=== PATIENT | female | born 1945 | race Caucasian/White ===

== ENCOUNTER → 2017-01-12 | Outpatient (CLI) | payer MEDICARE ==
--- NOTE | 2017-01-13 10:03 | MM ---
Reason for exam: screening (asymptomatic). Last mammogram was performed 1 year and 2 months ago. History: Patient is postmenopausal. Family history of premenopausal breast cancer in sister and premenopausal breast cancer in maternal aunt. Stereotactic core biopsy, May 23, 2002. Benign core biopsy of the left breast, March 20, 1998. Excisional biopsy of the right breast. Physical Findings: A clinical breast exam by your physician is recommended on an annual basis and results should be correlated with mammographic findings. MG 3D Screening Mammo W/Cad Bilateral CC and MLO view(s) were taken. Prior study comparison: November 13, 2015, bilateral MG 3d screening mammo w/cad. July 11, 2014, bilateral MG screening mammo w CAD. April 05, 2013, bilateral digital screening mammo w/CAD. March 29, 2012, bilateral digital screening mammo w/CAD. There are scattered fibroglandular densities. No significant changes when compared with prior studies. ASSESSMENT: Negative, BI-RAD 1 RECOMMENDATION: Routine screening mammogram of both breasts in 1 year.
== END | disposition home or self-care (01) ==
LOC: RADMAMWWP 09:57
PROVIDERS: ATTEND Family Medicine
DX: Z12.31 Encounter for screening mammogram for malignant neoplasm of breast (principal)
CPT/HCPCS: 77063; G0202

== ENCOUNTER → 2017-07-28 | Outpatient (CLI) | payer MEDICARE ==
--- NOTE | 2017-07-28 14:18 | ECHOS ---
STRESS ECHOCARDIOGRAM DATE OF SERVICE: 07/28/2017 INDICATIONS: Chest pain. MEDICATIONS:: Lexapro. BASELINE HEART RATE: 74 BASELINE BLOOD PRESSURE: 136/78 MAXIMUM HEART RATE: 142 MAXIMUM BLOOD PRESSURE: 168/81 85% MPHR: 128 100% MPHR: 150 METS: 8.5 MAXIMUM STAGE REACHED: III TOTAL EXERCISE TIME: 7 minutes. CLINICAL INFORMATION: Baseline EKG revealed normal sinus rhythm, no acute changes. Patient walked on a standard [place] protocol for 7 minutes. Achieved a maximal heart rate of 142 beats per minute which is more than 85% of predicted maximal. She developed fatigue and shortness of breath, but did not have angina. There was a lot of baseline artifact. The available images at peak exercise suggests that there is no evidence of stress- induced ischemia. On this study, there was no significant arrhythmia. By EKG criteria, this is a negative stress test with fair exercise capacity. Baseline echo images revealed normal wall motion and wall thickening of all segments. At peak exercise, there was good augmentation of left ventricular wall motion and wall thickening of all segments suggesting that there is no evidence of stress-induced ischemia on this study. IMPRESSION: 1. Fair exercise capacity with a negative stress test by EKG criteria. 2. Normal stress echocardiogram without evidence of ischemia. MMODL / IJN: [id number] /
== END | disposition home or self-care (01) ==
LOC: RADNMMAIN 09:01
PROVIDERS: ATTEND Internal Medicine
DX: R07.9 Chest pain, unspecified (principal)
CPT/HCPCS: 93017; 93350

== ENCOUNTER → 2018-02-09 | Outpatient (CLI) | payer MEDICARE ==
--- NOTE | 2018-02-09 13:22 | BD ---
EXAMINATION TYPE: MG DEXA axial skeleton. DATE OF EXAM: 02/09/2018 CLINICAL HISTORY: M85.80 Height: 63.25 Weight: 138 FRAX RISK QUESTIONS: Alcohol (3 or more units per day): no Family History (Parent hip fracture): no Glucocorticoids (More than 3mos): no (Ex: prednisone, prednisolone, methylprednisolone, dexamethasone, and hydrocortisone). History of Fracture in Adulthood: no Secondary Osteoporosis: 1. Type 1 Diabetes: no 2. Hyperthyroidism: no 3. Menopause before 45: no 4. Malnutrition: no 5. Chronic liver disease: no Rheumatoid Arthritis: no Current Tobacco Use: no RISK FACTORS HISTORY OF: Family History of Osteoporosis: unsure...possibly sister who recently broke femur Active: yes Diet low in dairy products/other sources of calcium: no Postmenopausal woman: yes Take estrogen and/or progesterone medications: not now How long: hormonal contraceptives about 3 years Lost more than 2 inches in height since high school: no Frequent falls: no Poor Health: no Hyperparathyroidism: no Adrenal Insufficiency: no MEDICATIONS: Prednisone or other steroids: no Thyroid Medications: no Osteoporosis Medications: not now Which medication: Fosamax How Long: only one dose-had adverse reaction Additional Medications: Vitamin D, multivitamin Additional History: none to note EXAM MEASUREMENTS: Bone mineral densitometry was performed using the [employer] System. Bone mineral density as measured about the Lumbar spine is: ----- L1-L4(G/cm2): 1.036 T Score Values are as follows: ----- L2: -1.5 ----- L3: -0.8 ----- L4: -0.5 ----- L1-L4: -1.2 Bone mineral density not previously done at this facility; history of this test elsewhere Bone mineral density about the R hip (g/cm2): 0.724 Bone mineral density about the L hip (g/cm2): 0.708 T Score values are as follows: -----R Neck: -2.3 -----L Neck: -2.4 -----R Total: -1.9 -----L Total: -2.1 Bone mineral density not previously done at this facility; history of this test elsewhere IMPRESSION: Osteopenia (T Score between -2.5 and -1). There is slightly increased risk of fracture and the patient may be considered for treatment. Re-Screen 2-5 years. NOTE: T-SCORE=SD OF THE YOUNG ADULT MEAN.
--- NOTE | 2018-02-10 09:37 | MM ---
Reason for exam: screening (asymptomatic). Last mammogram was performed 1 year and 1 month ago. History: Patient is postmenopausal. Family history of premenopausal breast cancer in sister at age 50 and premenopausal breast cancer in maternal aunt at age 70. Stereotactic core biopsy, May 23, 2002. Benign core biopsy of the left breast, March 20, 1998. Excisional biopsy of the right breast. Physical Findings: A clinical breast exam by your physician is recommended on an annual basis and results should be correlated with mammographic findings. MG 3D Screening Mammo W/Cad Bilateral CC and MLO view(s) were taken. Prior study comparison: January 12, 2017, bilateral MG 3d screening mammo w/cad. November 13, 2015, bilateral MG 3d screening mammo w/cad. The breast tissue is heterogeneously dense. This may lower the sensitivity of mammography. There is chronic nodularity in the right breast, stable. No significant changes when compared with prior studies. ASSESSMENT: Benign, BI-RAD 2 RECOMMENDATION: Routine screening mammogram of both breasts in 1 year.
== END | disposition home or self-care (01) ==
LOC: RADMAMWWP 10:02
PROVIDERS: ATTEND Family Medicine
DX: Z12.31 Encounter for screening mammogram for malignant neoplasm of breast (principal); M85.80 Other specified disorders of bone density and structure, unspecified site
CPT/HCPCS: 77063; 77067; 77080

== ENCOUNTER → 2019-03-02 | Outpatient (CLI) | payer MEDICARE ==
--- NOTE | 2019-03-03 12:05 | MM ---
Reason for exam: screening (asymptomatic). Last mammogram was performed 1 year and 1 month ago. History: Patient is postmenopausal. Family history of premenopausal breast cancer in sister at age 50 and premenopausal breast cancer in maternal aunt at age 70. Stereotactic core biopsy, May 23, 2002. Benign core biopsy of the left breast, March 20, 1998. Excisional biopsy of the right breast. Physical Findings: A clinical breast exam by your physician is recommended on an annual basis and results should be correlated with mammographic findings. MG 3D Screening Mammo W/Cad Bilateral CC and MLO view(s) were taken. Prior study comparison: February 09, 2018, bilateral MG 3d screening mammo w/cad. January 12, 2017, bilateral MG 3d screening mammo w/cad. The breast tissue is heterogeneously dense. This may lower the sensitivity of mammography. There is no discrete abnormality. No significant changes when compared with prior studies. ASSESSMENT: Negative, BI-RAD 1 RECOMMENDATION: Routine screening mammogram of both breasts in 1 year.
== END | disposition home or self-care (01) ==
LOC: RADMAMWWP 10:51
PROVIDERS: ATTEND Family Medicine
DX: Z12.31 Encounter for screening mammogram for malignant neoplasm of breast (principal)
CPT/HCPCS: 77063; 77067

== ENCOUNTER → 2020-11-28 | Outpatient (CLI) | payer MEDICARE ==
--- NOTE | 2020-11-28 16:22 | BD ---
EXAMINATION TYPE: Axial Bone Density DATE OF EXAM: 11/28/2020 COMPARISON: 02/09/2018 CLINICAL HISTORY: Postmenopausal screening Height: 63 IN Weight: 136 LBS RISK FACTORS HISTORY OF: Active: YES Postmenopausal woman: AGE 55 Take estrogen and/or progesterone medications: NOT NOW How long: TOOK CONTROL FOR 3 YEARS MEDICATIONS: Additional Medications: VIT D, MULTI VIT, LEXAPRO, METFORMIN, CHOLESTEROL MED EXAM MEASUREMENTS: Bone mineral densitometry was performed using the [employer] System. Bone mineral density as measured about the Lumbar spine is: ----- L1-L4(G/cm2): 1.106 T Score Values are as follows: ----- L2: -1.2 ----- L3: 0.0 ----- L4: 0.2 ----- L1-L4: -0.6 Bone mineral density has: Increased 6.6% since study of: 02/09/2018 Bone mineral density about the R hip (g/cm2): 0.699 Bone mineral density about the L hip (g/cm2): 0.672 T Score values are as follows: -----R Neck: -2.4 -----L Neck: -2.6 -----R Total: -2.1 -----L Total: -2.3 Bone mineral density has: Decreased -3.7% since study of: 02/09/2018 IMPRESSION: Osteoporosis (T Score less than -2.5). There is increased fracture risk and therapy is usually indicated based on age. Re-Screen 1-2 years. NOTE: T-SCORE=SD OF THE YOUNG ADULT MEAN.
--- NOTE | 2020-11-29 14:15 | MM ---
Reason for exam: screening (asymptomatic). Last mammogram was performed 1 year and 9 months ago. History: Patient is postmenopausal. Family history of premenopausal breast cancer in sister at age 50 and premenopausal breast cancer in maternal aunt at age 70. Stereotactic core biopsy, May 23, 2002. Benign core biopsy of the left breast, March 20, 1998. Excisional biopsy of the right breast. Took hormonal contraceptives for 3 years. Physical Findings: A clinical breast exam by your physician is recommended on an annual basis and results should be correlated with mammographic findings. MG 3D Screening Mammo W/Cad Bilateral CC and MLO view(s) were taken. Prior study comparison: March 02, 2019, bilateral MG 3d screening mammo w/cad. February 09, 2018, bilateral MG 3d screening mammo w/cad. There are scattered fibroglandular densities. There is chronic nodularity bilaterally. No significant changes when compared with prior studies. ASSESSMENT: Benign, BI-RAD 2 RECOMMENDATION: Routine screening mammogram of both breasts in 1 year.
== END | disposition home or self-care (01) ==
LOC: RADMAMWWP 15:24
PROVIDERS: ATTEND Family Medicine
DX: Z12.31 Encounter for screening mammogram for malignant neoplasm of breast (principal); M81.0 Age-related osteoporosis without current pathological fracture; Z78.0 Asymptomatic menopausal state
CPT/HCPCS: 77063; 77067; 77080

== ENCOUNTER 2020-12-27 18:51 | Emergency (ER) | payer MEDICARE ==
[2020-12-27 18:57] VITALS: RESP 18
[2020-12-27] MEDS ORDERED: SODIUM CHLORIDE 0.9% 1,000 ML IV STA (19:18)
[2020-12-27] MEDS ORDERED: ONDANSETRON 4 MG/2 ML VIAL IVP STA (19:18)
[2020-12-27 19:38] LABS: Basophils % (A) 0 %; Eosinophils # (A) 0.1 k/uL (0-0.7); Eosinophils % (A) 1 %; HCT 41.3 % (34.0-46.0); Lymphocytes # (A) 1.3 k/uL (1.0-4.8); Lymphocytes % (A) 14 %; MCH 30.9 pg (25.0-35.0); MCHC 33.9 g/dL (31.0-37.0); MCV 91.2 fL (80.0-100.0); Mean Platelet Volume 6.5; Monocytes # (A) 0.3 k/uL (0-1.0); Monocytes % (A) 3 %; Neutrophils # (A) 7.4 k/uL (1.3-7.7); Neutrophils % (A) 80 %; Platelet Count 244 k/uL (150-450); RBC 4.53 m/uL (3.80-5.40); RDW 12.7 % (11.5-15.5); WBC 9.2 k/uL (3.8-10.6)
[2020-12-27 19:47] LABS: ALT 24 U/L (4-34); AST 24 U/L (14-36); African American GFR (CKD) >90 (>60 ml/min/1.73 sqM); Albumin 4.3 g/dL (3.5-5.0); Alkaline Phosphatase 80 U/L (38-126); Anion Gap 11 mmol/L; Blood Urea Nitrogen 20 mg/dL (7-17); Calcium 9.4 mg/dL (8.4-10.2); Carbon Dioxide 25 mmol/L (22-30); Chloride 103 mmol/L (98-107); Glucose 145 mg/dL (74-99); Lipase 87 U/L (23-300); Non-African American GFR(CKD) >90 (>60 ml/min/1.73 sqM); Potassium 3.8 mmol/L (3.5-5.1); Sodium 139 mmol/L (137-145); Total Bilirubin 0.5 mg/dL (0.2-1.3); Total Protein 7.2 g/dL (6.3-8.2)
[2020-12-27] MEDS ORDERED: METOCLOPRAMIDE 5 MG/ML 2 ML VIAL IVP STA (19:57)
[2020-12-27] MEDS ORDERED: MECLIZINE 12.5 MG TAB PO STA (19:58)
--- NOTE | 2020-12-27 20:05 | ED ---
General Adult HPI - General Chief complaint: Dizziness Stated complaint: vomiting, dizzy Time Seen by Provider: 12/27/20 18:58 Source: patient, EMS Mode of arrival: EMS Limitations: no limitations - History of Present Illness Initial comments: Dictation was produced using [employer] dictation software. please excuse any grammatical, word or spelling errors. This patient was cared for during a federal and state declared state of emergency secondary to Covid 19 Chief Complaint: 75-year-old female with acute onset vertigo History of Present Illness: Is a 75-year-old female she has past medical history of prediabetes. She presents to the emergency department via EMS for severe bout of dizziness. Patient was helping her family members run some errands when all of a sudden she became severely nauseated. She did have cold bouts of n onbilious nonbloody projectile vomiting. Patient does not have a history of vertigo. She states that her symptoms are so severe that she could not walk. She does report that the room was spinning. He was in her usual state of health otherwise. She woke up this morning feeling fine. Denies any constitutional symptoms. She does not have any abdominal pain. The ROS documented in this emergency department record has been reviewed and confirmed by me. Those systems with pertinent positive or negative responses have been documented in the HPI. All other systems are other negative and/or n oncontributory. PHYSICAL EXAM: General Impression: Alert and oriented x3, not in acute distress HEENT: Normocephalic atraumatic, extra-ocular movements intact, pupils equal and reactive to light bilaterally, mucous membranes moist. Cardiovascular: Heart regular rate and rhythm Chest: Able to complete full sentences, no retractions, no tachypnea Abdomen: abdomen soft, non-tender, non-distended, no organomegaly Musculoskeletal: Pulses present and equal in all extremities, no peripheral edema Motor: no focal deficits noted Neurological: CN II-XII grossly intact, no focal motor or sensory deficits noted, isolated nystagmus with rightward gaze with fast phase to the right, no left gaze nystagmus, no rotatory nystagmus Skin: Intact with no visualized rashes Psych: Normal affect and mood ED course: 75-year-old female presents with clinical presentation consistent with severe vertigo ends upon arrival are within acceptable limits. Patient does not show any signs or symptoms of central cause of vertigo or features of cerebrovascular accident. Laboratory evaluation obtained. CBC, metabolic panel is unremarkable. EKG interpretation: Ventricular rate 72, normal sinus rhythm,. Interval 150, QRS 84, QTC 468. No [place] prolongation, no QTC prolongation. There is diffuse T- wave inversions in precordial leads. There are no ST segment elevations,. Overall, this EKG is unremarkable History with antivertigo medicines. She was reevaluated at approximately 8:30 PM. Patient ambulated with no complications. She feels much improved. Laboratory evaluation obtained showing no acute processes. There is a small degree of dehydration. Patient will be discharged. Patient prescription for Antivert. Still to follow-up with her primary care physician. Hyperemesis discussed. Told to seek immediate medical attention if she starts to develop associated strokelike symptoms.Otherwise she is told to follow-up with ENT if she keeps developing chronic vertiginous symptoms. - Related Data Home Medications Medication Instructions Recorded Confirmed Escitalopram Oxalate [Lexapro] 20 mg PO DAILY 12/07/14 12/07/14 Previous Rx's Medication Instructions Recorded Meclizine [Antivert] 25 mg PO TID PRN #15 tab 12/27/20 Allergies Allergy/AdvReac Type Severity Reaction Status Date / Time No Known Allergies Allergy Verified 12/27/20 18:58 Review of Systems ROS Statement: Those systems with pertinent positive or pertinent negative responses have been documented in the HPI. ROS Other: All systems not noted in ROS Statement are negative. Past Medical History Past Medical History: Diabetes Mellitus History of Any Multi-Drug Resistant Organisms: None Reported Past Surgical History: Breast Surgery Additional Past Surgical History / Comment(s): breast biopsy, colonoscopy Past Anesthesia/Blood Transfusion Reactions: No Reported Reaction Past Psychological History: Anxiety Smoking Status: Never smoker Past Alcohol Use History: Occasional Past Drug Use History: None Reported - Past Family History Mother Family Medical History: Cancer Sister(s) Family Medical History: Cancer General Exam Limitations: no limitations Course Vital Signs 12/27/20 12/27/20 18:54 19:38 Temperature 97.6 F Pulse Rate 65 71 Respiratory 18 18 Rate Blood Pressure 186/94 164/98 O2 Sat by Pulse 96 97 Oximetry Medical Decision Making - Lab Data Result diagrams: 12/27/20 19:28 12/27/20 19:28 Lab Results 12/27/20 12/27/20 Range/Units 19:28 19:28 WBC 9.2 (3.8-10.6) k/uL RBC 4.53 (3.80-5.40) m/uL Hgb 14.0 (11.4-16.0) gm/dL Hct 41.3 (34.0-46.0) % MCV 91.2 (80.0-100.0) fL MCH 30.9 (25.0-35.0) pg MCHC 33.9 (31.0-37.0) g/dL RDW 12.7 (11.5-15.5) % Plt Count 244 (150-450) k/uL MPV 6.5 Neutrophils % 80 % Lymphocytes % 14 % Monocytes % 3 % Eosinophils % 1 % Basophils % 0 % Neutrophils # 7.4 (1.3-7.7) k/uL Lymphocytes # 1.3 (1.0-4.8) k/uL Monocytes # 0.3 (0-1.0) k/uL Eosinophils # 0.1 (0-0.7) k/uL Basophils # 0.0 (0-0.2) k/uL Sodium 139 (137-145) mmol/L Potassium 3.8 (3.5-5.1) mmol/L Chloride 103 (98-107) mmol/L Carbon Dioxide 25 (22-30) mmol/L Anion Gap 11 mmol/L BUN 20 H (7-17) mg/dL Creatinine 0.54 (0.52-1.04) mg/dL Est GFR (CKD-EPI)AfAm >90 (>60 ml/min/1.73 sqM) Est GFR (CKD-EPI)NonAf >90 (>60 ml/min/1.73 sqM) Glucose 145 H (74-99) mg/dL Calcium 9.4 (8.4-10.2) mg/dL Total Bilirubin 0.5 (0.2-1.3) mg/dL AST 24 (14-36) U/L ALT 24 (4-34) U/L Alkaline Phosphatase 80 (38-126) U/L Total Protein 7.2 (6.3-8.2) g/dL Albumin 4.3 (3.5-5.0) g/dL Lipase 87 (23-300) U/L Disposition Clinical Impression: Vertigo Disposition: HOME SELF-CARE Condition: Good Instructions (If sedation given, give patient instructions): Dizziness (ED) Prescriptions: Meclizine [Antivert] 25 mg PO TID PRN #15 tab PRN Reason: dizziness Is patient prescribed a controlled substance at d/c from ED?: No Referrals: Breanna Goldstein MD [Primary Care Provider] - 1-2 days Time of Disposition: 20:54
[2020-12-27 21:03] VITALS: BP 149/99; PULSE 80; TEMP 97.9
== END 2020-12-27 21:02 | disposition home or self-care (01) ==
LOC: EC 18:51
DX: R42 Dizziness and giddiness (principal); E86.0 Dehydration; R11.2 Nausea with vomiting, unspecified; F41.9 Anxiety disorder, unspecified; Z79.899 Other long term (current) drug therapy
CPT/HCPCS: 36415; 93005; 80053; 83690; 85025; 99284; 96374; 96375; 96361; J2765; J2405

== ENCOUNTER → 2022-01-03 | Outpatient (CLI) | payer MEDICARE ==
--- NOTE | 2022-01-07 08:58 | MM ---
Reason for exam: screening (asymptomatic). Last mammogram was performed 1 year and 1 month ago. History: Patient is postmenopausal. Family history of premenopausal breast cancer in sister at age 50 and premenopausal breast cancer in maternal aunt at age 70. Stereotactic core biopsy, May 23, 2002. Benign core biopsy of the left breast, March 20, 1998. Excisional biopsy of the right breast. Took hormonal contraceptives for 3 years. Physical Findings: A clinical breast exam by your physician is recommended on an annual basis and results should be correlated with mammographic findings. MG 3D Screening Mammo W/Cad Bilateral CC and MLO view(s) were taken. Prior study comparison: November 28, 2020, bilateral MG 3d screening mammo w/cad. March 02, 2019, bilateral MG 3d screening mammo w/cad. There are scattered fibroglandular densities. No significant changes when compared with prior studies. ASSESSMENT: Benign, BI-RAD 2 RECOMMENDATION: Routine screening mammogram of both breasts in 1 year.
== END | disposition home or self-care (01) ==
LOC: RADMAMWWP 11:50
PROVIDERS: ATTEND Family Medicine
DX: Z12.31 Encounter for screening mammogram for malignant neoplasm of breast (principal)
CPT/HCPCS: 77063; 77067

== ENCOUNTER → 2023-02-04 | Outpatient (CLI) | payer MEDICARE ==
--- NOTE | 2023-02-05 18:59 | MM ---
Reason for Exam: Screening (asymptomatic). Last mammogram was performed 1 year(s) and 1 month(s) ago. Patient History: Menarche at age 19. First Full-Term at age 28. Postmenopausal. Patient used Hormonal Contraceptives for 3 years. Excisional Biopsy on the Right side. 05/23/2002, Stereotactic Core Biopsy. 03/20/1998, Benign Core Biopsy on the left side. Maternal aunt had breast cancer, age 70. Sister had breast cancer, age 50. Risk Values: Patt 5 year model risk: 4.7%. NCI Lifetime model risk: 10.0%. Prior Study Comparison: 03/02/2019 Bilateral Screening Mammogram, LOCATED WITHIN [facility]. 11/28/2020 Bilateral Screening Mammogram, LOCATED [facility]IN [facility]. 01/03/2022 Bilateral Screening Mammogram, LOCATED WITHIN [facility]. Tissue Density: There are scattered fibroglandular densities. Findings: Analyzed By CAD. Asymmetric density central right CC view remains unchanged. Benign bilateral vascular calcifications. Low density nodularity superior left MLO view remains unchanged. There is no suspicious group of microcalcifications or new suspicious mass in either breast. Overall Assessment: Benign, BI-RAD 2 Management: Screening Mammogram of both breasts in 1 year. 1. Note that per NCCN guidelines, a five-year risk assessment greater than 1.67% is used to assess eligibility for a risk reducing agent. 2. Patient should continue monthly self breast exams. 3. This exam should not preclude additional follow-up of suspicious palpable abnormalities. Electronically signed and approved by: Florentino Sanon M.D. Radiologist
== END | disposition home or self-care (01) ==
LOC: RADMAMWWP 13:20
PROVIDERS: ATTEND Family Medicine
DX: Z12.31 Encounter for screening mammogram for malignant neoplasm of breast (principal); Z78.0 Asymptomatic menopausal state; Z80.3 Family history of malignant neoplasm of breast; Z98.890 Other specified postprocedural states
CPT/HCPCS: 77063; 77067

== ENCOUNTER 2023-10-01 15:15 | Emergency (ER) | payer MEDICARE ==
--- NOTE | 2023-10-01 16:06 | ED ---
Fall HPI - General Chief Complaint: Head Injury Stated Complaint: fall Time Seen by Provider: 10/01/23 16:03 Source: patient, RN notes reviewed, old records reviewed, Caregiver Mode of arrival: ambulatory Limitations: no limitations - History of Present Illness Initial Comments: This is a 78-year-old female of mechanical trip and fall. Patient mechanical trip and fall and did hit her head without loss of consciousness no blood thinners. Patient denies any other injuries. Pain with difficulty, no back pain chest pain shortness with abdominal pain or headache. 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 Fall Witnessed: yes, by family Place Fall Occurred: home Loss of Consciousness: none Prolonged Down Time?: no Symptoms Prior to Fall: none Location: head, face, back Severity: moderate Severity scale (1-10): 3 Context: tripped/slipped Associated Symptoms: headache - Related Data Home Medications Medication Instructions Recorded Confirmed Escitalopram Oxalate [Lexapro] 20 mg PO DAILY 12/07/14 12/07/14 Previous Rx's Medication Instructions Recorded Meclizine [Antivert] 25 mg PO TID PRN #15 tab 12/27/20 Allergies Allergy/AdvReac Type Severity Reaction Status Date / Time No Known Allergies Allergy Verified 10/01/23 15:58 Review of Systems ROS Statement: Those systems with pertinent positive or pertinent negative responses have been documented in the HPI. ROS Other: All systems not noted in ROS Statement are negative. Past Medical History Past Medical History: Diabetes Mellitus Additional Past Medical History / Comment(s): Vertigo History of Any Multi-Drug Resistant Organisms: None Reported Past Surgical History: Breast Surgery Additional Past Surgical History / Comment(s): breast biopsy, colonoscopy Past Anesthesia/Blood Transfusion Reactions: No Reported Reaction Past Psychological History: Anxiety Smoking Status: Never smoker Past Alcohol Use History: Occasional, Rare Past Drug Use History: None Reported - Past Family History Mother Family Medical History: Cancer Sister(s) Family Medical History: Cancer General Exam Limitations: no limitations General appearance: alert, in no apparent distress Head exam: Present: atraumatic, normocephalic, normal inspection Eye exam: Present: normal appearance, PERRL, EOMI. Absent: scleral icterus, conjunctival injection, periorbital swelling ENT exam: Present: normal exam, mucous membranes moist Neck exam: Present: normal inspection. Absent: tenderness, meningismus, lymphadenopathy Respiratory exam: Present: normal lung sounds bilaterally. Absent: respiratory distress, wheezes, rales, rhonchi, stridor Cardiovascular Exam: Present: regular rate, normal rhythm, normal heart sounds. Absent: systolic murmur, diastolic murmur, rubs, gallop, clicks GI/Abdominal exam: Present: soft, normal bowel sounds. Absent: distended, tenderness, guarding, rebound, rigid Extremities exam: Present: normal inspection, full ROM, normal capillary refill. Absent: tenderness, pedal edema, joint swelling, calf tenderness Back exam: Present: normal inspection Neurological exam: Present: alert, oriented X3, CN II-XII intact Psychiatric exam: Present: normal affect, normal mood Skin exam: Present: warm, dry, intact, normal color. Absent: rash Course Vital Signs 10/01/23 10/01/23 10/01/23 15:51 17:10 18:00 Temperature 98.2 F 98.8 F 98 F Pulse Rate 69 75 75 Respiratory 17 18 18 Rate Blood Pressure 151/90 147/88 135/81 O2 Sat by Pulse 96 96 98 Oximetry - Reevaluation(s) Reevaluation #1: 10/01/23 Medical record is reviewed Reevaluation #2: 10/01/23 Patient has no complaints Reevaluation #3: 10/01/23 Patient informed of results and questions answered Reevaluation #4: Was pt. sent in by a medical professional or institution (, PA, PLUGGER WORKER, urgent care, hospital, or alf...) When possible be specific @ -no Did you speak to anyone other than the patient for history (EMS, parent, family, police, friend...)? What history was obtained from this source @ -no Did you review nursing and triage notes (agree or disagree)? Why? @ -agree Are old charts reviewed (outside hosp., previous admission, EMS record, old EKG, old radiological studies, urgent care reports/EKG's, alf records)? Report findings @ -yes Differential Diagnosis (chest pain, altered mental status, abdominal pain women, abdominal pain men, vaginal bleeding, weakness, fever, dyspnea, syncope, headache, dizziness, GI bleed, back pain, seizure, CVA, palpatations, mental health, musculoskeletal)? @ -prior EKG interpreted by me (3pts min.). @ -no X-rays interpreted by me (1pt min.). @ -no CT interpreted by me (1pt min.). @ -yes U/S interpreted by me (1pt. min.). @ -no What testing was considered but not performed or refused? (CT, X-rays, U/S, labs)? Why? @ -none What meds were considered but not given or refused? Why? @ -none Did you discuss the management of the patient with other professionals (professionals i.e. Dr., PA, PLUGGER WORKER, lab, RT, psych nurse, social media marketing specialist, water resource project manager, teacher, fisheries technical officer, manager of case management)? Give summary @ -no Was smoking cessation discussed for >3mins.? @ -no Was critical care preformed (if so, how long)? @ -no Were there social determinants of health that impacted care today? How? (Homelessness, low income, unemployed, alcoholism, drug addiction, transportation, low edu. Level, literacy, decrease access to med. care, senior living, rehab)? @ -none Was there de-escalation of care discussed even if they declined (Discuss DNR or withdrawal of care, Hospice)? DNR status @ -no What co-morbidities impacted this encounter? (DM, HTN, Smoking, COPD, CAD, Cancer, CVA, ARF, Chemo, Hep., AIDS, mental health diagnosis, sleep apnea, morbid obesity)? @ -none Was patient admitted / discharged? Hospital course, mention meds given and route, prescriptions, significant lab abnormalities, going to OR and other pertinent info. @ - 78 female mechanical trip and fall with no significant somatic injury noted. Patient has no complaints here in the ER feels improved and can be disc harged unable to amply without difficulty Discharged Undiagnosed new problem with uncertain prognosis? @ -no Drug Therapy requiring intensive monitoring for toxicity (Heparin, Nitro, Insulin, Cardizem)? @ -no Were any procedures done? @ -no Diagnosis/symptom? @ -Fall with head injury Acute, or Chronic, or Acute on Chronic? @ -Acute Uncomplicated (without systemic symptoms) or Complicated (systemic symptoms)? @ -Complicated Side effects of treatment? @ -no Exacerbation, Progression, or Severe Exacerbation? @ -exacerbation Poses a threat to life or bodily function? How? (Chest pain, [place], [place], pneumonia, PE, COPD, DKA, ARF, appy, cholecystitis, CVA, Diverticulitis, Homicidal, Suicidal, threat to staff... and all critical care pts) @ -yes with extreme of age Medical Decision Making - Medical Decision Making 78 female mechanical trip and fall with no significant somatic injury noted. Patient has no complaints here in the ER feels improved and can be discharged unable to amply without difficulty - Radiology Data Radiology results: report reviewed (CT brain C-spine is negative for acute d isease), image reviewed Disposition Clinical Impression: Closed head injury, Fall Disposition: HOME SELF-CARE Condition: Good Instructions (If sedation given, give patient instructions): Fall Prevention for Older Adults (ED) Is patient prescribed a controlled substance at d/c from ED?: No Referrals: Breanna Goldstein MD [Primary Care Provider] - 1-2 days Time of Disposition: 17:40
[2023-10-01] MEDS ORDERED: LORazepam 2 MG/ML INJ IV STA (16:43)
[2023-10-01] MEDS ORDERED: LORazepam 2 MG/ML INJ IM STA (17:05)
[2023-10-01 17:41] VITALS: PULSE 75; RESP 18
--- NOTE | 2023-10-01 17:41 | CT ---
EXAMINATION TYPE: CT brain liine wo con DATE OF EXAM: 10/01/2023 COMPARISON: NONE HISTORY: fall CT DLP: 1299 mGycm. Automated Exposure Control for Dose Reduction was Utilized. TECHNIQUE: CT scan of the head and cervical spine are performed without contrast. FINDINGS: There is no acute intracranial hemorrhage, mass effect, or midline shift identified. The ventricles are more prominent than the sulci and cisterns, suggesting the possibility of normal press ure hydrocephalus if clinically supported. The globes are intact and the visualized sinuses are clear . Cervical spine is visualized in its entirety from C1 through upper thoracic levels and demonstrates s atisfactory alignment without evidence of acute fracture or dislocation. Prevertebral soft tissue ap pears within normal limits. There are prominent multilevel cervical spondylosis changes. The C1-C2 a rticulation is unremarkable. Partial visualization of the aortic arch; suspect right-sided aortic arch. IMPRESSION: 1. There is no acute fracture or dislocation evident in the cervical spine. 2. No acute intracranial hemorrhage, mass effect, or midline shift is seen. 3. 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
[2023-10-01 18:26] VITALS: BP 135/81; TEMP 98
== END 2023-10-01 18:18 | disposition home or self-care (01) ==
LOC: EC 15:15
DX: S09.90XA Unspecified injury of head, initial encounter (principal); E11.9 Type 2 diabetes mellitus without complications; Z86.59 Personal history of other mental and behavioral disorders; W01.198A Fall on same level from slipping, tripping and stumbling with subsequent striking against other object, initial encounter
CPT/HCPCS: 72125; 70450; 99284; 96372; J2060

== ENCOUNTER → 2024-02-09 | Outpatient (CLI) | payer MEDICARE ==
--- NOTE | 2024-02-12 17:40 | MM ---
Reason for Exam: Screening (asymptomatic). Last screening mammogram was performed 12 month(s) ago. Patient History: Menarche at age 19. First Full-Term at age 28. Postmenopausal. Patient used Hormonal Contraceptives for 3 years. Excisional Biopsy on the Right side. 05/23/2002, Stereotactic Core Biopsy. 03/20/1998, Benign Core Biopsy on the left side. Maternal aunt had breast cancer, age 70. Sister had breast cancer, age 50. Risk Values: Patt 5 year model risk: 4.7%. NCI Lifetime model risk: 9.4%. Prior Study Comparison: 11/28/2020 Bilateral Screening Mammogram, [facility]. 01/03/2022 Bilateral Screening Mammogram, [facility]. 02/04/2023 Bilateral MG 3D screening mammo w/cad, [facility]. Tissue Density: There are scattered areas of fibroglandular density. Findings: Analyzed By CAD. The pattern is symmetrical. Benign vascular calcifications present bilaterally No suspicious groups of microcalcifications, spiculated or lobular masses, architectural distortion or other secondary signs of malignancy are mammographically apparent. Overall Assessment: Benign, BI-RAD 2 Management: Screening Mammogram of both breasts in 1 year. A negative mammogram report should not preclude additional follow up of suspicious palpable abnormalities. Patient should continue monthly self breast exam. A clinical breast exam by your physician is recommended on an annual basis and results should be correlated with mammographic findings. Electronically signed and approved by: Torres Ham D.O. Radiologis
== END | disposition home or self-care (01) ==
LOC: RADMAMWWP 10:22
PROVIDERS: ATTEND Family Medicine
DX: Z12.31 Encounter for screening mammogram for malignant neoplasm of breast (principal); Z78.0 Asymptomatic menopausal state; Z80.3 Family history of malignant neoplasm of breast
CPT/HCPCS: 77063; 77067

== ENCOUNTER → 2025-03-17 | Outpatient (CLI) | payer MEDICARE ==
--- NOTE | 2025-03-17 14:06 | MM ---
Reason for Exam: Screening (asymptomatic). Last mammogram was performed 1 year(s) and 2 month(s) ago. Patient History: Menarche at age 19. First Full-Term at age 28. Postmenopausal. Patient used Hormonal Contraceptives for 3 years. Excisional Biopsy on the Right side. 05/23/2002, Stereotactic Core Biopsy. 03/20/1998, Benign Core Biopsy on the left side. Maternal aunt had breast cancer, age 70. Sister had breast cancer, age 50. Risk Values: Patt 5 year model risk: 4.7%. NCI Lifetime model risk: 8.8%. Prior Study Comparison: 01/03/2022 Bilateral Screening Mammogram, [facility]. 02/04/2023 Bilateral MG 3D screening mammo w/cad, [facility]. 02/09/2024 Bilateral MG 3D screening mammo w/cad, [facility]. Tissue Density: The breasts are heterogeneously dense, which may obscure small masses. Findings: Analyzed By CAD. There are benign-appearing vascular calcifications bilaterally redemonstrated. There are a few tiny benign-appearing round calcifications scattered throughout the right breast redemonstrated. There is no suspicious group of microcalcifications or new suspicious mass in either breast. Overall Assessment: Benign, BI-RAD 2 Management: Screening Mammogram of both breasts in 1 year. . Patient should continue monthly self-breast exams. A clinical breast exam by your physician is recommended on an annual basis. This exam should not preclude additional follow-up of suspicious palpable abnormalities. Note on Patt scores and lifetime risk: 1. A Patt score greater than 3% is considered moderate risk. If this is the case, consider specialist referral to assess eligibility for a risk reducing agent. 2. If overall lifetime risk for the development of breast cancer is 20% or higher, the patient may qualify for future screening with alternating mammogram and breast MRI. [facility], , 03/17/2025 2:02 PM. Electronically signed and approved by: Wes Alberto M.D.
--- NOTE | 2025-03-17 15:14 | BD ---
EXAMINATION TYPE: Axial Bone Density DATE OF EXAM: 03/17/2025 CLINICAL HISTORY: 79 years old Female. ICD-10 CODE: Z78.0 POST MENOPAUSAL , Additional History: Height: 63 Weight: 132 FRAX RISK QUESTIONS: Alcohol (3 or more units per day): no Family History (Parent hip fracture): no Glucocorticoids (More than 3mos): no (Ex: prednisone, prednisolone, methylprednisolone, dexamethasone, and hydrocortisone). History of Fracture in Adulthood: no Secondary Osteoporosis: 1. Type 1 Diabetes: no 2. Hyperthyroidism: no 3. Menopause before 45: no 4. Malnutrition: no 5. Chronic liver disease: no Rheumatoid Arthritis: no Current Tobacco Use: no RISK FACTORS HISTORY OF: Surgery to Spine/Hip(right/left)/Wrist (right/left): no EXAM MEASUREMENTS: Bone mineral densitometry was performed using the [employer] System. Bone mineral density as measured about the Lumbar spine is: ----- L1-L4(G/cm2): 1.137 T Score Values are as follows: ----- L1: -0.9 ----- L2: -0.5 ----- L3: -0.4 ----- L4: 0.1 ----- L1-L4: -0.4 Z Score Values are as follows: ----- L1: 1.0 ----- L2: 1.5 ----- L3: 1.6 ----- L4: 2.0 ----- L1-L4: 1.6 Bone mineral density has: increased 2.8 % since study of: 11.28.2020 Bone mineral density about the R hip (g/cm2): 0.692 Bone mineral density about the L hip (g/cm2): 0.713 T Score values are as follows: -----R Neck: -2.9 -----L Neck: -2.4 -----R Total: -2.5 -----L Total: -2.3 Z Score values are as follows: -----R Neck: -0.8 -----L Neck: -0.3 -----R Total: -0.5 -----L Total: -0.3 Bone mineral density has: decreased -3.6 % since study of: 1.13.2020 FRAX%s: The graph provided illustrates a 22.3% chance for a major osteoporotic fx and a 8.9% chance f or the hips probability for fx in 10 years time. IMPRESSION: Osteoporosis (T Score less than -2.5) femoral neck level right hip is present. There is increased fracture risk and therapy is usually indicated based on age. Re-Screen 1-2 years. NOTE: T-SCORE=SD OF THE YOUNG ADULT MEAN. [facility], , 03/17/2025 3:11 PM
== END | disposition home or self-care (01) ==
LOC: RADMAMWWP 13:04
PROVIDERS: ATTEND Family Medicine
DX: Z12.31 Encounter for screening mammogram for malignant neoplasm of breast (principal); R92.333 Mammographic heterogeneous density, bilateral breasts; M81.0 Age-related osteoporosis without current pathological fracture; Z78.0 Asymptomatic menopausal state; Z80.3 Family history of malignant neoplasm of breast
CPT/HCPCS: 77063; 77067; 77080

== ENCOUNTER 2025-05-23 11:05 | Emergency (ER) | payer MEDICARE ==
--- NOTE | 2025-05-23 11:47 | ED ---
General Adult HPI - General Chief complaint: Extremity Injury, Upper Stated complaint: Fall, left arm injury Time Seen by Provider: 05/23/25 11:23 Source: patient, RN notes reviewed Mode of arrival: ambulatory - History of Present Illness Initial comments: 80-year-old female presents to the emergency department for evaluation of left wrist injury. 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 She states that she fell on her left outstretched wrist. She states that since then she has had decreased range of motion. Denies any numbness or tingling. She does note deformity to the hand. She denies any other injuries. She denies blood thinners. Denies loss of consciousness. - Related Data Home Medications Medication Instructions Recorded Confirmed Escitalopram Oxalate [Lexapro] 20 mg PO DAILY 12/07/14 12/07/14 Previous Rx's Medication Instructions Recorded Meclizine [Antivert] 25 mg PO TID PRN #15 tab 12/27/20 Allergies Allergy/AdvReac Type Severity Reaction Status Date / Time No Known Allergies Allergy Verified 10/01/23 15:58 Review of Systems ROS Statement: Those systems with pertinent positive or pertinent negative responses have been documented in the HPI. ROS Other: All systems not noted in ROS Statement are negative. Past Medical History Past Medical History: Diabetes Mellitus Additional Past Medical History / Comment(s): Vertigo History of Any Multi-Drug Resistant Organisms: None Reported Past Surgical History: Breast Surgery Additional Past Surgical History / Comment(s): breast biopsy, colonoscopy Past Anesthesia/Blood Transfusion Reactions: No Reported Reaction Past Psychological History: Anxiety Smoking Status: Never smoker Past Alcohol Use History: Occasional, Rare Past Drug Use History: None Reported - Past Family History Mother Family Medical History: Cancer Sister(s) Family Medical History: Cancer General Exam Limitations: no limitations General appearance: alert, in no apparent distress Head exam: Present: atraumatic, normocephalic, normal inspection Eye exam: Present: normal appearance, PERRL, EOMI. Absent: scleral icterus, conjunctival injection, periorbital swelling ENT exam: Present: normal exam, mucous membranes moist Respiratory exam: Present: normal lung sounds bilaterally. Absent: respiratory distress, wheezes, rales, rhonchi, stridor Cardiovascular Exam: Present: regular rate, normal rhythm, normal heart sounds. Absent: systolic murmur, diastolic murmur, rubs, gallop, clicks Extremities exam: Present: normal capillary refill, other (Deformity to the left wrist, radial pulses 2+, sensation intact distally). Absent: full ROM (Decreased range of motion at the left wrist), tenderness, pedal edema, joint swelling, calf tenderness Neurological exam: Present: alert, oriented X3 Psychiatric exam: Present: normal affect, normal mood Skin exam: Present: warm, dry, intact, normal color. Absent: rash Course Vital Signs 05/23/25 11:16 Temperature 98 F Pulse Rate 64 Respiratory 16 Rate Blood Pressure 139/77 O2 Sat by Pulse 98 Oximetry Medical Decision Making - Medical Decision Making Was pt. sent in by a medical professional or institution (SHAILA Holly, HVAC FIELD SERVICE TECHNICIAN, urgent care, hospital, or assisted...) When possible be specific @ -[No] Did you speak to anyone other than the patient for history (EMS, parent, family, police, friend...)? What history was obtained from this source @ -[No] Did you review nursing and triage notes (agree or disagree)? Why? @ -[I reviewed and agree with nursing and triage notes] Were old charts reviewed (outside hosp., previous admission, EMS record, old EKG, old radiological studies, urgent care reports/EKG's, assisted records)? Report findings @ -[No old charts were reviewed] Differential Diagnosis (chest pain, altered mental status, abdominal pain women, abdominal pain men, vaginal bleeding, weakness, fever, dyspnea, syncope, headache, dizziness, GI bleed, back pain, seizure, CVA, palpatations, mental health, musculoskeletal)? @ -[Differential Musculoskeletal Muscular strain, contusion, ligament sprain, fracture, arthritis, septic arthritis, bursitis, cellulitis, muscle spasm, nerve compression, DVT, arterial occlusion, herpes zoster, electrolyte abnormality, tumor.... This is not meant to be in all inclusive list] EKG interpreted by me (3pts min.). @ -None X-rays interpreted by me (1pt min.). @ -[None done] CT interpreted by me (1pt min.). @ -[None done] U/S interpreted by me (1pt. min.). @ -[None done] What testing was considered but not performed or refused? (CT, X-rays, U/S, labs)? Why? @ -[None] What meds were considered but not given or refused? Why? @ -[None] Did you discuss the management of the patient with other professionals (professionals i.e. , PA, HVAC FIELD SERVICE TECHNICIAN, lab, RT, psych nurse, social work administrator, coal briquette machine operator, teacher, international first officer, case management assistant)? Give summary @ -[No] Was smoking cessation discussed for >3mins.? @ -[No] Was critical care preformed (if so, how long)? @ -[No] Were there social determinants of health that impacted care today? How? (Homelessness, low income, unemployed, alcoholism, drug addiction, transportation, low edu. Level, literacy, decrease access to med. care, halfway, rehab)? @ -[No] Was there de-escalation of care discussed even if they declined (Discuss DNR or withdrawal of care, Hospice)? DNR status @ -[No] What co-morbidities impacted this encounter? (DM, HTN, Smoking, COPD, CAD, Cancer, CVA, ARF, Chemo, Hep., AIDS, mental health diagnosis, sleep apnea, morbid obesity)? @ -[None] Was patient admitted / discharged? Hospital course, mention meds given and route, prescriptions, significant lab abnormalities, going to OR and other pertinent info. @ -[hospital course] Undiagnosed new problem with uncertain prognosis? @ -[No] Drug Therapy requiring intensive monitoring for toxicity (Heparin, Nitro, Insulin, Cardizem)? @ -[No] Were any procedures done? @ -[No] Diagnosis/symptom? @ -[default] Acute, or Chronic, or Acute on Chronic? @ -[default] Uncomplicated (without systemic symptoms) or Complicated (systemic symptoms)? @ -[default] Side effects of treatment? @ -[No] Exacerbation, Progression, or Severe Exacerbation? @ -[No] Poses a threat to life or bodily function? How? (Chest pain, [place], [place], pneumonia, PE, COPD, DKA, ARF, appy, cholecystitis, CVA, Diverticulitis, Homicidal, Suicidal, threat to staff... and all critical care pts) @ -[No] Disposition Clinical Impression: Fracture of distal radius and ulna Disposition: HOME SELF-CARE Condition: Stable Instructions (If sedation given, give patient instructions): Wrist Injury (ED) Additional Instructions: Please follow-up with orthopedics. Return to the emergency department for new or worsening symptoms. Is patient prescribed a controlled substance at d/c from ED?: No Referrals: Breanna Goldstein MD [Primary Care Provider] - 1-2 days Zi Anaya DO [Doctor of Osteopathic Medicine] - 1-2 days
--- NOTE | 2025-05-23 12:22 | XR ---
EXAMINATION TYPE: XR wrist complete LT DATE OF EXAM: 05/23/2025 12:14 PM INDICATION: Patient age:Female; 80 years old; Reason for study: fall; [facility]. pain COMPARISON: None TECHNIQUE: 4 views of the left wrist. Frontal, navicular, lateral, and oblique. FINDINGS: Diffuse bone demineralization. Acute comminuted impacted fracture of the distal radial meta physis with dorsal apex angulation. There is intra-articular extension into the radiocarpal joint Acu te moderately displaced fracture of the ulnar styloid process. No evidence for dislocation. Carpal ro ws appear intact. There is surrounding soft tissue edema of the wrist. IMPRESSION: 1. Acute comminuted impacted fracture of the distal radial metaphysis with intra-articular extension into the radiocarpal joint. There is mild dorsal apex angulation. 2. Acute mildly displaced fracture of the ulnar styloid process. [facility], , 05/23/2025 12:20 PM
[2025-05-23 13:47] VITALS: BP 174/85; PULSE 75; RESP 18; TEMP 97.9
== END 2025-05-23 13:26 | disposition home or self-care (01) ==
LOC: EC 11:05
DX: S52.502A Unspecified fracture of the lower end of left radius, initial encounter for closed fracture (principal); S52.602A Unspecified fracture of lower end of left ulna, initial encounter for closed fracture; W01.0XXA Fall on same level from slipping, tripping and stumbling without subsequent striking against object, initial encounter; Y93.K1 Activity, walking an animal
CPT/HCPCS: 99283